=== PATIENT | female | born 1950 | race Caucasian/White ===

== ENCOUNTER 2017-05-12 14:06 | Outpatient (CLI) | payer MEDICARE, OTHER ==
[2017-05-12 14:55] LABS: BILIRUBIN,URINE NEGATIVE (NEGATIVE); PH,URINE 6.5 PH (5.0-7.5)
[2017-05-12 14:56] LABS: UR CULTURE IF IND NOT INDICATED
== END 2017-05-12 14:07 | disposition home or self-care (01) ==
LOC: LAB 14:06
PROVIDERS: ATTEND Internal Medicine Pulmonary Disease
DX: N39.0 Urinary tract infection, site not specified (principal)
CPT/HCPCS: 81001; 87086

== ENCOUNTER 2020-10-12 09:31 | Outpatient (CLI) | payer MEDICARE, OTHER | END 2020-10-12 09:32 | disposition home or self-care (01) | LOC: LAB.S 09:31 | PROVIDERS: ATTEND Nurse Practitioner Family | DX: N95.1 Menopausal and female climacteric states (principal); Z79.899 Other long term (current) drug therapy | CPT/HCPCS: 36415; 84144 ==

== ENCOUNTER 2022-05-24 12:48 | Outpatient (CLI) | payer MEDICARE, OTHER | END 2022-05-24 12:49 | disposition home or self-care (01) | LOC: LAB.S 12:48 | PROVIDERS: ATTEND Internal Medicine | DX: Z79.890 Hormone replacement therapy (principal); Z80.41 Family history of malignant neoplasm of ovary | CPT/HCPCS: 36415; 86304 ==